=== PATIENT | male | born 1970 | race Caucasian/White ===

== ENCOUNTER 2020-05-17 06:54 | Outpatient (REF) | payer BC, SELFPAY ==
[2020-05-17 11:49] LABS: Hematocrit 47.4 % (42-52); Hemoglobin 15.6 g/dl (14.0-18.0); Mean Corpuscular HGB Conc 32.9 g/dl (31.0-36.0); Mean Corpuscular Hemoglobin 28.7 pg (27.0-33.0); Mean Corpuscular Volume 87.3 fL (80-98); Mean Platelet Volume 10.4 fL (9.4-12.4); Platelet Count 212 X10*3/uL (160-400); Red Blood Count 5.43 X10*6/uL (4.60-5.80)
[2020-05-17 12:12] LABS: Alanine Aminotransferase 18 U/L (0-40); Albumin Level 4.3 g/dL (3.5-5.0); Alkaline Phosphatase 80 U/L (39-117); Anion Gap 12 (12-20); Aspartate Amino Transferase 17 U/L (5-37); Bilirubin Total 0.6 mg/dL (0.0-1.0); Blood Urea Nitrogen 17 mg/dL (9-16); Calcium 8.7 mg/dL (8.4-10.2); Carbon Dioxide 28 mmol/L (22-29); Chloride 105 mmol/L (96-108); Cholesterol 220 mg/dL; Estimated Glomerular Filt Rate > 60; Glucose Fasting 113 mg/dL (60-99); HDL Cholesterol 41 mg/dL; LDL Cholesterol Calculated 142 mg/dl; Potassium 3.9 mmol/l (3.3-5.1); Sodium 141 mmol/L (135-145); Total Protein 6.9 g/dL (6.5-8.0); Triglycerides 185 mg/dL
[2020-05-17 12:37] LABS: Prostate Specific Antigen Scr 0.85 ng/mL (<0.05-4.0)
== END 2020-05-17 06:55 | disposition home or self-care (01) ==
LOC: HO.HMGCLDS 06:54
PROVIDERS: PCP Internal Medicine; Visit Provider Internal Medicine
DX: Z00.00 Encounter for general adult medical examination without abnormal findings (principal)
CPT/HCPCS: 36415; 80053; 80061; 84153; 85027

== ENCOUNTER 2020-05-24 | Outpatient (REF) | payer BC, SELFPAY ==
[2020-05-25 12:21] LABS: Glucose Urine UA NEG (NEG); Leukocyte Esterase Urine NEG (NEG); Nitrite Urine NEG (NEG); PH 5.5 (5.0-8.0); Specific Gravity - Urine >= 1.030 (1.005-1.025); Urine Blood NEG (NEG); Urine Ketones NEG (NEG); Urine Protein NEG (NEG-TRACE)
[2020-05-25 12:28] LABS: Appearance Urine CLEAR; Color Urine YELLOW
== END 2020-05-24 00:01 | disposition home or self-care (01) ==
LOC: HO.LNP
PROVIDERS: Visit Provider Internal Medicine
DX: Z00.00 Encounter for general adult medical examination without abnormal findings (principal)
CPT/HCPCS: 81003

== ENCOUNTER 2020-06-22 08:29 | Outpatient (REF) | payer BC, SELFPAY | END 2020-06-22 08:30 | disposition home or self-care (01) | LOC: HO.HMGCLDS 08:29 | PROVIDERS: PCP Internal Medicine; Visit Provider Internal Medicine | DX: Z20.828 Contact with and (suspected) exposure to other viral communicable diseases (principal) | CPT/HCPCS: C9803; U0003 ==

== ENCOUNTER 2020-09-02 | Outpatient (REF) | payer BC, SELFPAY ==
[2020-09-06 09:54] LABS: FIT Int Ctl YES; FIT1 NEGATIVE (NEGATIVE); FIT2 NEGATIVE (NEGATIVE)
== END 2020-09-02 00:01 | disposition home or self-care (01) ==
LOC: HO.LNP
PROVIDERS: Visit Provider Internal Medicine
DX: Z12.11 Encounter for screening for malignant neoplasm of colon (principal); Z12.12 Encounter for screening for malignant neoplasm of rectum
CPT/HCPCS: 82274

== ENCOUNTER 2021-06-04 07:22 | Outpatient (REF) | payer OTHER, SELFPAY ==
[2021-06-04 11:25] LABS: Estimated Average Glucose 108 mg/dL; Hemoglobin A1C 152.1448 umol/L; Hemoglobin A1c % 5.4 %
[2021-06-04 11:34] LABS: Microalbum/Creatinine Ratio Ur 2.7 ug/mg cr
[2021-06-04 11:36] LABS: Alanine Aminotransferase 25 U/L (0-40); Albumin Level 4.3 g/dL (3.5-5.0); Alkaline Phosphatase 85 U/L (39-117); Anion Gap 13 (12-20); Aspartate Amino Transferase 19 U/L (5-37); Bilirubin Total 0.5 mg/dL (0.0-1.0); Blood Urea Nitrogen 17 mg/dL (9-16); Calcium 9.5 mg/dL (8.4-10.2); Carbon Dioxide 26 mmol/L (22-29); Chloride 105 mmol/L (96-108); Cholesterol 255 mg/dL; Estimated Glomerular Filt Rate 58; Glucose Fasting 107 mg/dL (60-99); HDL Cholesterol 40 mg/dL; LDL Cholesterol Calculated 174 mg/dl; Potassium 4.3 mmol/L (3.3-5.1); Sodium 140 mmol/L (135-145); Total Protein 7.3 g/dL (6.5-8.0); Triglycerides 206 mg/dL
[2021-06-04 11:56] LABS: Prostate Specific Antigen Scr 1.38 ng/mL (<0.05-4.0)
== END 2021-06-04 07:23 | disposition home or self-care (01) ==
LOC: HO.HMGCLDS 07:22
PROVIDERS: PCP Internal Medicine; Visit Provider Internal Medicine
DX: Z00.00 Encounter for general adult medical examination without abnormal findings (principal); Z12.5 Encounter for screening for malignant neoplasm of prostate; E78.5 Hyperlipidemia, unspecified; R73.9 Hyperglycemia, unspecified
CPT/HCPCS: 36415; 80053; 80061; 82043; 83036; 84153

== ENCOUNTER 2022-06-24 06:43 | Outpatient (REF) | payer OTHER, SELFPAY ==
[2022-06-24 10:58] LABS: MANUAL DIFF FLAG NO
[2022-06-24 11:05] LABS: Basophils Percent Auto 0.4 % (0-2); Eosinophils Absolute Auto 0.1 X10*3/uL (0.0-0.4); Eosinophils Percent Auto 1.6 % (0-4); Hematocrit 47.2 % (42.0-52.0); Hemoglobin 15.9 g/dl (14.0-18.0); Imm Gran Abs Auto 0.01 X10*3/uL (0.00-0.03); Imm Gran Pct Auto 0.1 % (0.0-0.4); Lymphocytes Absolute Auto 1.9 X10*3/uL (1.2-4.9); Lymphocytes Percent Auto 28.9 % (20-40); Mean Corpuscular HGB Conc 33.7 g/dl (31.0-36.0); Mean Corpuscular Hemoglobin 29.1 pg (27.0-33.0); Mean Corpuscular Volume 86.3 fL (80.0-98.0); Mean Platelet Volume 10.6 fL (9.4-12.4); Monocytes Absolute Auto 0.7 X10*3/uL (0.1-1.2); Monocytes Percent Auto 9.9 % (2-11); Neutrophils Absolute Auto 3.9 x10*3/uL (2.0-8.3); Neutrophils Percent Auto 59.1 % (45-73); Platelet Count 253 X10*3/uL (160-400); Red Blood Count 5.47 X10*6/uL (4.60-5.80); Red Cell Distribution Width 12.3 % (11.0-16.0); White Blood Count 6.7 X10*3/uL (4.8-10.8)
[2022-06-24 11:19] LABS: Estimated Average Glucose 105 mg/dL; Hemoglobin A1c % 5.3 %
[2022-06-24 11:41] LABS: Alanine Aminotransferase 19 U/L (0-40); Albumin Level 4.4 g/dL (3.5-5.0); Alkaline Phosphatase 88 U/L (39-117); Anion Gap 12 (12-20); Aspartate Amino Transferase 21 U/L (5-37); Bilirubin Total 0.9 mg/dL (0.0-1.0); Blood Urea Nitrogen 16 mg/dL (9-16); Calcium 9.2 mg/dL (8.4-10.2); Carbon Dioxide 23 mmol/L (22-29); Chloride 109 mmol/L (96-108); Cholesterol 232 mg/dL; Estimated Glomerular Filt Rate > 60; Glucose Fasting 118 mg/dL (60-99); HDL Cholesterol 37 mg/dL; LDL Cholesterol Calculated 168 mg/dl; PSA,Total (Free>4and<10) 1.16 ng/mL (0.00-4.00); Potassium 4.4 mmol/L (3.3-5.1); Sodium 140 mmol/L (135-145); Total Protein 7.2 g/dL (6.5-8.0); Triglycerides 135 mg/dL
== END 2022-06-24 06:44 | disposition home or self-care (01) ==
LOC: HO.HMGCLDS 06:43
PROVIDERS: PCP Internal Medicine; Visit Provider Internal Medicine
DX: Z00.00 Encounter for general adult medical examination without abnormal findings (principal); E78.5 Hyperlipidemia, unspecified; R73.9 Hyperglycemia, unspecified; Z12.5 Encounter for screening for malignant neoplasm of prostate
CPT/HCPCS: 36415; 80053; 80061; 83036; 84153; 85025

== ENCOUNTER 2023-05-24 11:27 | Outpatient (REF) | payer OTHER, SELFPAY | END 2023-05-24 11:28 | disposition home or self-care (01) | LOC: HO.LNP 11:27 | PROVIDERS: Visit Provider Internal Medicine | DX: Z13.89 Encounter for screening for other disorder (principal) ==

== ENCOUNTER 2023-05-29 11:26 | Outpatient (REF) | payer OTHER, SELFPAY ==
[2023-05-29 11:50] LABS: FIT Int Ctl YES; FIT1 NEGATIVE (NEGATIVE); FIT2 NEGATIVE (NEGATIVE)
== END 2023-05-29 11:27 | disposition home or self-care (01) ==
LOC: HO.LNP 11:26
PROVIDERS: Visit Provider Internal Medicine
DX: Z12.11 Encounter for screening for malignant neoplasm of colon (principal)
CPT/HCPCS: 82274

== ENCOUNTER 2023-08-25 06:32 | Outpatient (REF) | payer OTHER, SELFPAY ==
[2023-08-25 11:24] LABS: MANUAL DIFF FLAG NO
[2023-08-25 11:31] LABS: Basophils Percent Auto 0.2 % (0-2); Eosinophils Absolute Auto 0.1 X10*3/uL (0.0-0.4); Eosinophils Percent Auto 0.9 % (0-4); Hematocrit 44.9 % (42.0-52.0); Hemoglobin 15.5 g/dl (14.0-18.0); Imm Gran Abs Auto 0.04 X10*3/uL (0.00-0.03); Imm Gran Pct Auto 0.5 % (0.0-0.4); Lymphocytes Absolute Auto 1.6 X10*3/uL (1.2-4.9); Mean Corpuscular HGB Conc 34.5 g/dl (31.0-36.0); Mean Corpuscular Volume 83.9 fL (80.0-98.0); Monocytes Absolute Auto 0.6 X10*3/uL (0.1-1.2); Monocytes Percent Auto 7.3 % (2-11); Neutrophils Absolute Auto 5.7 x10*3/uL (2.0-8.3); Neutrophils Percent Auto 71.1 % (45-73); Platelet Count 235 X10*3/uL (160-400); Red Blood Count 5.35 X10*6/uL (4.60-5.80); Red Cell Distribution Width 12.4 % (11.0-16.0); White Blood Count 8.1 X10*3/uL (4.8-10.8)
[2023-08-25 11:51] LABS: Estimated Average Glucose 105 mg/dL; Hemoglobin A1c % 5.3 % (<6.0)
[2023-08-25 12:03] LABS: Alanine Aminotransferase 17 U/L (0-40); Albumin Level 4.1 g/dL (3.5-5.0); Alkaline Phosphatase 88 U/L (39-117); Anion Gap 9 (12-20); Aspartate Amino Transferase 18 U/L (5-37); Bilirubin Total 0.8 mg/dL (0.0-1.0); Blood Urea Nitrogen 17 mg/dL (9-16); Calcium 9.1 mg/dL (8.4-10.2); Carbon Dioxide 24 mmol/L (22-29); Chloride 108 mmol/L (96-108); Cholesterol 236 mg/dL (<200); Estimated Glomerular Filt Rate > 60; Glucose Fasting 117 mg/dL (60-99); HDL Cholesterol 39 mg/dL (>40); LDL Cholesterol Calculated 172 mg/dL (<100); Potassium 3.9 mmol/L (3.3-5.1); Sodium 137 mmol/L (135-145); Total Protein 7.1 g/dL (6.5-8.0); Triglycerides 126 mg/dL (<150)
[2023-08-25 12:20] LABS: PSA,Total (Free>4and<10) 1.41 ng/mL (0.00-4.00)
== END 2023-08-25 06:33 | disposition home or self-care (01) ==
LOC: HO.HMGCLDS 06:32
PROVIDERS: PCP Internal Medicine; Visit Provider Internal Medicine
DX: Z00.00 Encounter for general adult medical examination without abnormal findings (principal); Z12.5 Encounter for screening for malignant neoplasm of prostate; E78.5 Hyperlipidemia, unspecified; R73.9 Hyperglycemia, unspecified
CPT/HCPCS: 36415; 80053; 80061; 83036; 84153; 85025

== ENCOUNTER 2023-08-28 09:26 | Outpatient (AMB) | payer OTHER, SELFPAY ==
--- NOTE | 2023-08-28 09:27 | A.OFFPC_ITS ---
Vital Signs 08/28/23 09:28 Height 6 ft Weight 213 lb BMI 28.9 BP 125/80 Blood Pressure Location Lt brachial Position Sitting Pulse 81 Pulse Source Pulse Oximeter Pulse Oximetry (%) 98 Oxygen Delivery Method Room Air Intake Visit Reasons: PE Intake Note: Pt is here today for PE. Allergies No Known Allergies [No Known Allergies*] Allergy (Verified 08/28/23 09:33) Medication List - Last Reconciled 08/28/23 by Nicol Garcia MD aspirin 81 mg PO DAILY omega-3 fatty acids (Fish Oil Concentrate) 1,000 mg PO DAILY rosuvastatin (Crestor) 10 mg PO DAILY Tobacco use date assessed: 08/28/23 Dental Screening Dental Screen Date: 08/28/23 Did you have a dental visit in the last 12 months?: No Did you have a dental problem in the last 6 months where you did not have access to dental care?: No Was dental information given to patient?: Patient declined HPI PE HPI Details Pt presents for PE. He has an episode of sensation of fast heart beat lasting up to a minute usually when sitting watching TV and resting, once or twice a month. Patient denies chest pain exercise induced palpitations shortness for breath. He ran out of Crestor 2 months ago. [facility] Medical History (Updated 08/28/23 @ 10:18 by Nicol Garcia MD) Colonoscopy refused Hyperglycemia Hyperlipidemia History of kidney stones History of jaundice as a child Annual physical exam Surgical History History of cardiac cath History of surgery Family History Father CAD (coronary artery disease), Onset Age: 50 Hx of CABG Heart attack Mother Heart attack Social History Household Members Other:: , 3 sons 21, 17, 7, works at metal factory, Housing: House Patient Tobacco Use Status: Current someday Tobacco user Tobacco use type: Cigarette Cigarettes Per Day: 5 e-Cigarette/Vaping Use: Never Used Current occupational status: employed Cognitive needs: No Hearing needs: No Vision needs: No Questionnaire PHQ-9 Over the last 2 weeks, how often have you been bothered by any of the following problems? 1. Little interest or pleasure in doing things: not at all 2. Feeling down, depressed, or hopeless: not at all 3. Trouble falling or staying asleep, or sleeping too much: not at all 4. Feeling tired or having little energy: not at all 5. Poor appetite or overeating: not at all 6. Feeling bad about yourself - or that you are a failure or have let yourself or your family down: not at all 7. Trouble concentrating on things, such as reading the newspaper or watching television: not at all 8. Moving or speaking so slowly that other people could have noticed. Or the opposite - being so fidgety or restless that you have been moving around a lot more than usual: not at all 9. Thoughts that you would be better off or of hurting yourself in some way: not at all Total score: 0 Depression Screening Interpretation: Negative Depression Screening Done: Yes Source: Developed by Drs. Hugo Church, Nannette Olea, Nando Gutierres and colleagues, with an educational ny from [employer]. Thrive Questionnaire Date Thrive assessed: 08/28/23 I am a: Patient What is your living situation today?: I have a steady place to live Within the past 12 months, did the food you bought not last and you didn't have the money to get more?: Never true Within the past 12 months, did you worry whether your food would run out before you got money to buy more?: Never true Do you have trouble paying for medicines?: No Do you have trouble getting transportation to medical appointments?: No Do you have trouble paying your heating and electricity bill?: No Do you have trouble taking care of your child, family member or friend?: No Do you have trouble with day-to-day activities such as bathing, preparing meals, shopping, managing finances, etc.?: No Are you currently unemployed and looking for a job?: No Are you interested in more education?: No Please select the resources that you would like help with: None Currently or been in a relationship where the following occur: no concerns reported THRIVE Score: 0 AUDIT C Alcohol Use Questionnaire (AUDIT-C) 1. How often do you have a drink containing alcohol?: Monthly or less 2. How many drinks containing alcohol do you have on a typical day when you are drinking?: 1 or 2 3. How often do you have six or more drinks on one occasion?: Never Total Score: 1 MAXIME-7 AMB Questionnaire MAXIME-7 Date MAXIME - 7 assessed: 08/28/23 Feeling nervous, anxious, or on edge: 0 = Not at all Not being able to stop or control worryin = Not at all Worrying too much about different things: 0 = Not at all Trouble relaxin = Not at all Being so restless that it is hard to sit still: 0 = Not at all Becoming easily annoyed or irritable: 0 = Not at all Feeling afraid as if something awful might happen: 0 = Not at all Total MAXIME-7 score (0-4 normal; 5-9 mild; 10-14 moderate; 15-21 severe): 0 Source: Developed by Drs. Hugo Church, Nannette Olea, Nando Gutierres and colleagues, with an educational ny from [employer]. Review of Systems Const All systems reviewed & are unremarkable except as noted in HPI and below Reports no additional complaints Eyes Reports no additional complaints ENT Reports no additional complaints Card Reports no additional complaints Resp Reports no additional complaints GI Reports no additional complaints Reports no additional complaints Physical exam (Primary Care) Vital Signs: Last Vital Signs Pulse 81 08/28/23 09:28 BP 134/80 08/28/23 09:28 Pulse Ox 98 08/28/23 09:28 Oxygen Delivery Method Room Air 08/28/23 09:28 BMI result Body Mass Index 28.9 Tobacco/Smoking Status: Tobacco use Status Tobacco use date assessed 08/28/23 08/28/23 09:35 Patient Tobacco Use Status Current someday Tobacco 08/28/23 09:35 Tobacco use type Cigarette 08/28/23 09:35 e-Cigarette/Vaping Use Never Used 08/28/23 09:35 PHQ-9: PHQ-9 Score PHQ-9: Total score 0 08/28/23 09:49 Depression Screening Interpretation: Negative Thrive Assessment: Date of Thrive Assessment Date Thrive assessed 08/28/23 08/28/23 09:38 Currently or been in a relationship where the following occur: no concerns reported Const General: no acute distress HENMT Head: Yes normal to inspection Face and sinus: Yes normal facial exam Mouth: Normal oral and palatal mucosa present Eyes General: appearance normal, both eyes and all related structures Neck Neck: Yes no lymphadenopathy and Yes supple Resp Effort & Inspection: normal respiratory effort Auscultation: clear to auscultation bilaterally Cardio Rhythm: regular rhythm Heart sounds: S1 normal heart sound present and S2 normal heart sound present GI Inspection: Yes normal to inspection Palpation (GI): Soft to palpation Percussion: Yes normal to percussion Auscultation: normal bowel sounds Assessment and Plan Assessment & Plan (1) Annual physical exam: Code(s): Z00.00 - Encounter for general adult medical examination without abnormal findings Plan: Well-balanced diet regular physical activity discussed with the patient. Tobacco quitting was recommended. Patient was advised to monitor episodes of palpitations, their frequency duration and relationship to physical activity or stress (2) Hyperlipidemia: Code(s): E78.5 - Hyperlipidemia, unspecified Plan: Patient will restart Crestor and will have fasting lipid profile in 2 months (3) Colonoscopy refused: Comment: 05/2021, 07/31 , Cologuard negative 2021, FIT negative 05/31 Code(s): Z53.20 - Procedure and treatment not carried out because of patient's decision for unspecified reasons Orders: Orders Lipid Panel 2 Months E78.5 - Hyperlipidemia, unspecified, Z00.00 - Encounter for general adult medical examination without abnormal findings Comprehensive Met. Panel 2 Months E78.5 - Hyperlipidemia, unspecified, Z00.00 - Encounter for general adult medical examination without abnormal findings Medications: Refilled rosuvastatin (Crestor) 10 mg PO DAILY 90 tabs 3RF Coding Level of Care Code Est Pt Prev Care 40-64y(02740) Diagnoses Annual physical exam Z00.00 Hyperlipidemia E78.5 Colonoscopy refused Z53.20
[2023-08-28 09:28] VITALS: BP 125/80; PULSE 81; O2SAT 98; BMI 28.9
== END 2023-08-28 10:25 | disposition home or self-care (01) ==
PROVIDERS: PCP Internal Medicine; Visit Provider Internal Medicine
DX: Z00.00 Encounter for general adult medical examination without abnormal findings (principal); E78.5 Hyperlipidemia, unspecified; Z53.20 Procedure and treatment not carried out because of patient's decision for unspecified reasons
CPT/HCPCS: 99396

== ENCOUNTER 2023-10-30 06:01 | Outpatient (REF) | payer OTHER, SELFPAY ==
[2023-10-30 12:11] LABS: Alanine Aminotransferase 23 U/L (0-40); Albumin Level 4.3 g/dL (3.5-5.0); Alkaline Phosphatase 96 U/L (39-117); Anion Gap 11 (12-20); Aspartate Amino Transferase 23 U/L (5-37); Bilirubin Total 0.8 mg/dL (0.0-1.0); Blood Urea Nitrogen 14 mg/dL (9-16); Calcium 9.3 mg/dL (8.4-10.2); Carbon Dioxide 27 mmol/L (22-29); Chloride 107 mmol/L (96-108); Cholesterol 205 mg/dL (<200); Estimated Glomerular Filt Rate > 60; Glucose Random 116 mg/dL (60-115); HDL Cholesterol 38 mg/dL (>40); LDL Cholesterol Calculated 134 mg/dL (<100); Potassium 3.7 mmol/L (3.3-5.1); Sodium 141 mmol/L (135-145); Total Protein 7.3 g/dL (6.5-8.0); Triglycerides 169 mg/dL (<150)
== END 2023-10-30 06:02 | disposition home or self-care (01) ==
LOC: HO.HMGCLDS 06:01
PROVIDERS: PCP Internal Medicine; Visit Provider Internal Medicine
DX: Z00.00 Encounter for general adult medical examination without abnormal findings (principal); E78.5 Hyperlipidemia, unspecified
CPT/HCPCS: 36415; 80053; 80061

== ENCOUNTER 2023-11-01 13:51 | Outpatient (AMB) | payer OTHER, SELFPAY ==
[2023-11-01 13:57] VITALS: BP 124/76; PULSE 76; O2SAT 97; BMI 28.9
--- NOTE | 2023-11-01 13:57 | A.OFFPC_ITS ---
Vital Signs 11/01/23 13:57 Height 6 ft Weight 213 lb BMI 28.9 BP 124/76 Blood Pressure Location Rt brachial Pulse 76 Pulse Source Pulse Oximeter Pulse Oximetry (%) 97 Oxygen Delivery Method Room Air Intake Visit Reasons: 2 months follow up on labs Allergies No Known Allergies [No Known Allergies*] Allergy (Verified 11/01/23 13:57) Medication List - Last Reconciled 11/01/23 by Nicol Garcia MD aspirin 81 mg PO DAILY omega-3 fatty acids (Fish Oil Concentrate) 1,000 mg PO DAILY rosuvastatin (Crestor) 10 mg PO DAILY Tobacco use date assessed: 11/01/23 Dental Screening Dental Screen Date: 11/01/23 Did you have a dental visit in the last 12 months?: Yes Did you have a dental problem in the last 6 months where you did not have access to dental care?: No Was dental information given to patient?: Patient has dentist HPI 2 months follow up on labs HPI Details Patient presents for hyperlipidemia. [facility] Medical History (Updated 08/28/23 @ 10:18 by Nicol Garcia MD) Colonoscopy refused Hyperglycemia Hyperlipidemia History of kidney stones History of jaundice as a child Annual physical exam Surgical History History of cardiac cath History of surgery Family History Father CAD (coronary artery disease), Onset Age: 50 Hx of CABG Heart attack Mother Heart attack Social History Household Members Other:: , 3 sons 21, 17, 7, works at [employer], Housing: House Patient Tobacco Use Status: Current someday Tobacco user Tobacco use type: Cigarette Cigarettes Per Day: 5 e-Cigarette/Vaping Use: Never Used service: No Current occupational status: employed Cognitive needs: No Hearing needs: No Vision needs: No Questionnaire Thrive Questionnaire Date Thrive assessed: 08/28/23 MAXIME-7 AMB Questionnaire MAXIME-7 Date MAXIME - 7 assessed: 08/28/23 Source: Developed by Drs. Hugo Church, Nannette Olea, Nando Gutierres and colleagues, with an educational ny from [employer]. Review of Systems Const All systems reviewed & are unremarkable except as noted in HPI and below Eyes Reports no additional complaints ENT Reports no additional complaints Card Reports no additional complaints Resp Reports no additional complaints GI Reports no additional complaints Reports no additional complaints Physical exam (Primary Care) Vital Signs: Last Vital Signs Pulse 76 11/01/23 13:57 BP 124/76 11/01/23 13:57 Pulse Ox 97 11/01/23 13:57 Oxygen Delivery Method Room Air 11/01/23 13:57 BMI result Body Mass Index 28.9 Tobacco/Smoking Status: Tobacco use Status Tobacco use date assessed 11/01/23 11/01/23 13:58 Patient Tobacco Use Status Current someday Tobacco 11/01/23 13:58 Tobacco use type Cigarette 11/01/23 13:58 e-Cigarette/Vaping Use Never Used 11/01/23 13:58 Thrive Assessment: Date of Thrive Assessment Date Thrive assessed 08/28/23 11/01/23 13:58 Const General: no acute distress HENMT Head: Yes normal to inspection Resp Effort & Inspection: normal respiratory effort Auscultation: clear to auscultation bilaterally Cardio Rhythm: regular rhythm Heart sounds: S1 normal heart sound present and S2 normal heart sound present GI Inspection: Yes normal to inspection Palpation (GI): Soft to palpation Assessment and Plan Assessment & Plan (1) Hyperlipidemia: Code(s): E78.5 - Hyperlipidemia, unspecified Plan: Medication compliance discussed with the patient he will continue Crestor have lipid profile checked in 6 months and before physical in August, continue low- cholesterol diet (2) Hyperglycemia: Code(s): R73.9 - Hyperglycemia, unspecified Plan: ADA diet regular exercise discussed with the patient will monitor A1c every 6 months Orders: Orders Lipid Panel 10 Months E78.5 - Hyperlipidemia, unspecified, R73.9 - Hyperglycemia, unspecified, Z00.00 - Encounter for general adult medical examination without abnormal findings PSA,Total (Free>4and<10) 10 Months E78.5 - Hyperlipidemia, unspecified, R73.9 - Hyperglycemia, unspecified, Z00.00 - Encounter for general adult medical examination without abnormal findings Lipid Panel 6 Months E78.5 - Hyperlipidemia, unspecified, R73.9 - Hyperglycemia, unspecified Comprehensive [place]. Panel Fast 6 Months E78.5 - Hyperlipidemia, unspecified, R73.9 - Hyperglycemia, unspecified Hemoglobin A1c 6 Months E78.5 - Hyperlipidemia, unspecified, R73.9 - Hyperglycemia, unspecified Comprehensive [place]. Panel Fast 10 Months E78.5 - Hyperlipidemia, unspecified, R73.9 - Hyperglycemia, unspecified, Z00.00 - Encounter for general adult medical examination without abnormal findings Complete Blood Count Auto Diff 10 Months E78.5 - Hyperlipidemia, unspecified, R73.9 - Hyperglycemia, unspecified, Z00.00 - Encounter for general adult medical examination without abnormal findings Hemoglobin A1c 10 Months E78.5 - Hyperlipidemia, unspecified, R73.9 - Hyperglycemia, unspecified, Z00.00 - Encounter for general adult medical examination without abnormal findings UA w Microscopic 10 Months E78.5 - Hyperlipidemia, unspecified, R73.9 - Hyperglycemia, unspecified, Z00.00 - Encounter for general adult medical examination without abnormal findings Coding Level of Care Code Est Pt Level 3 (10218) Diagnoses Hyperlipidemia E78.5 Hyperglycemia R73.9
== END 2023-11-01 14:41 | disposition home or self-care (01) ==
PROVIDERS: PCP Internal Medicine; Visit Provider Internal Medicine
DX: E78.5 Hyperlipidemia, unspecified (principal); R73.9 Hyperglycemia, unspecified
CPT/HCPCS: 99213

== ENCOUNTER 2024-03-25 11:57 | Outpatient (AMB) | payer OTHER, SELFPAY ==
[2024-03-25 12:11] VITALS: BP 126/78; PULSE 78; O2SAT 98; BMI 28.5
--- NOTE | 2024-03-25 12:11 | MHC.PC.OV ---
Vital Signs 03/25/24 12:11 Height 6 ft Weight 210 lb BMI 28.5 BP 126/78 Blood Pressure Location Rt brachial Position Sitting Pulse 78 Pulse Source Pulse Oximeter Pulse Oximetry (%) 98 Oxygen Delivery Method Room Air Intake Visit Reasons: Rash armpits Intake Note: Pt c/o rash all over body. Pt states that it started on his chest and now its under his armpits eye lids.Pt states that the rash is very itchy started on Sunday. Allergies No Known Allergies [No Known Allergies*] Allergy (Verified 03/25/24 12:20) Medication List - Last Reconciled 03/25/24 by Nicol Garcia MD aspirin 81 mg PO DAILY omega-3 fatty acids (Fish Oil Concentrate) 1,000 mg PO DAILY prednisone 50 mg PO DAILY rosuvastatin (Crestor) 10 mg PO DAILY Tobacco use date assessed: 03/25/24 Dental Screening Dental Screen Date: 03/25/24 HPI Rash armpits HPI Details Pt c/o itchy rash started after using deodorant 1 week ago. The rash started in the armpits and spread to his torso and back. Patient has been using [id number] hydrocortisone cream without relief. [facility] Medical History Colonoscopy refused Hyperglycemia Hyperlipidemia History of kidney stones History of jaundice as a child Annual physical exam Surgical History History of cardiac cath History of surgery Family History Father CAD (coronary artery disease), Onset Age: 50 Hx of CABG Heart attack Mother Heart attack Social History Household Members Other:: , 3 sons 21, 17, 7, works at metal factory, Housing: House Patient Tobacco Use Status: Former Tobacco user Tobacco use type: Cigarette e-Cigarette/Vaping Use: Never Used service: No Current occupational status: employed Cognitive needs: No Hearing needs: No Vision needs: No Questionnaire Thrive Questionnaire Date Thrive assessed: 08/28/23 MAXIME-7 AMB Questionnaire MAXIME-7 Date MAXIME - 7 assessed: 08/28/23 Source: Developed by Nannette Watson B[employer]W. Lef[employer], Nando Gutierres and colleagues, with an educational ny from [employer]. Review of Systems Const All systems reviewed & are unremarkable except as noted in HPI and below Eyes Reports no additional complaints ENT Reports no additional complaints Card Reports no additional complaints Resp Reports no additional complaints GI Reports no additional complaints Physical exam (Primary Care) Vital Signs: Last Vital Signs Pulse 78 03/25/24 12:11 BP 126/78 03/25/24 12:11 Pulse Ox 98 03/25/24 12:11 Oxygen Delivery Method Room Air 03/25/24 12:11 BMI result Body Mass Index 28.5 Tobacco/Smoking Status: Tobacco use Status Tobacco use date assessed 03/25/24 03/25/24 12:23 Patient Tobacco Use Status Former Tobacco user 03/25/24 12:37 Tobacco use type Cigarette 03/25/24 12:11 e-Cigarette/Vaping Use Never Used 03/25/24 12:11 Thrive Assessment: Date of Thrive Assessment Date Thrive assessed 08/28/23 03/25/24 12:11 Const General: no acute distress HENMT Ears: hearing grossly normal bilaterally Neck Neck: Yes supple Resp Effort & Inspection: normal respiratory effort Auscultation: clear to auscultation bilaterally Cardio Rhythm: regular rhythm Heart sounds: S1 normal heart sound present and S2 normal heart sound present Skin Other: Maculopapular rash on the torso and in axillary region bilaterally Assessment and Plan Assessment & Plan (1) Allergic reaction: Code(s): T78.40XA - Allergy, unspecified, initial encounter Plan: Prednisone 50 mg daily for 5 days is prescribed and supportive care discussed with the patient Medications: New prednisone 50 mg PO DAILY 5 tabs 0RF Coding Level of Care Code Est Pt Level 3 (33830) Diagnoses Allergic reaction T78.40XA
== END 2024-03-25 13:21 | disposition home or self-care (01) ==
PROVIDERS: PCP Internal Medicine; Visit Provider Internal Medicine
DX: T78.40XA Allergy, unspecified, initial encounter (principal)

== ENCOUNTER → 2024-03-25 11:57 | Outpatient (BNVA) | payer OTHER, SELFPAY | PROVIDERS: PCP Internal Medicine; Visit Provider Internal Medicine | DX: T78.40XA Allergy, unspecified, initial encounter (principal); X58.XXXA Exposure to other specified factors, initial encounter ==

== ENCOUNTER 2024-04-09 13:21 | Outpatient (AMB) | payer OTHER, SELFPAY ==
[2024-04-09 13:22] VITALS: BP 128/72; PULSE 73; O2SAT 97; BMI 28.1
--- NOTE | 2024-04-09 13:22 | MHC.PC.OV ---
Vital Signs 04/09/24 13:22 Height 6 ft Weight 207 lb BMI 28.1 BP 128/72 Blood Pressure Location Rt brachial Position Sitting Pulse 73 Pulse Source Pulse Oximeter Pulse Oximetry (%) 97 Oxygen Delivery Method Room Air Intake Visit Reasons: Follow up on rash Intake Note: Pt is here today for a follow up visit on rash. Pt states that he is loosing weight and his rash is back and its very itchy,. Pt states that he also has pain in his muscles. Allergies No Known Allergies [No Known Allergies*] Allergy (Verified 03/25/24 12:20) Medication List - Last Reconciled 04/09/24 by Nicol Garcia MD aspirin 81 mg PO DAILY omega-3 fatty acids (Fish Oil Concentrate) 1,000 mg PO DAILY rosuvastatin (Crestor) 10 mg PO DAILY Tobacco use date assessed: 04/09/24 Dental Screening Dental Screen Date: 03/25/24 HPI Follow up on rash HPI Details Patient presents for the follow-up of pruritic rash improved while on prednisone but now is recurrent. The rash is worse in axillary region, upper chest and arms. Patient used any new laundry detergent a few weeks ago and has been still wearing clothes washed in that detergent. He denies fever chills shortness or breath abdominal pain change in bowel habits [facility] Medical History Colonoscopy refused Hyperglycemia Hyperlipidemia History of kidney stones History of jaundice as a child Annual physical exam Surgical History History of cardiac cath History of surgery Family History Father CAD (coronary artery disease), Onset Age: 50 Hx of CABG Heart attack Mother Heart attack Social History Household Members Other:: , 3 sons 21, 17, 7, works at [employer], Housing: House Patient Tobacco Use Status: Former Tobacco user Tobacco use type: Cigarette e-Cigarette/Vaping Use: Never Used service: No Current occupational status: employed Cognitive needs: No Hearing needs: No Vision needs: No Questionnaire Thrive Questionnaire Date Thrive assessed: 08/28/23 MAXIME-7 AMB Questionnaire MAXIME-7 Date MAXIME - 7 assessed: 08/28/23 Source: Developed by Drs. Hugo Church, Nannette Olea, Nando Gutierres and colleagues, with an educational ny from [employer]. Review of Systems Const All systems reviewed & are unremarkable except as noted in HPI and below Eyes Reports no additional complaints ENT Reports no additional complaints Card Reports no additional complaints Resp Reports no additional complaints GI Reports no additional complaints Reports no additional complaints Physical exam (Primary Care) Vital Signs: Last Vital Signs Pulse 73 04/09/24 13:22 BP 128/72 04/09/24 13:22 Pulse Ox 97 04/09/24 13:22 Oxygen Delivery Method Room Air 04/09/24 13:22 BMI result Body Mass Index 28.1 Tobacco/Smoking Status: Tobacco use Status Tobacco use date assessed 04/09/24 04/09/24 13:31 Patient Tobacco Use Status Former Tobacco user 04/09/24 13:27 Tobacco use type Cigarette 04/09/24 13:27 e-Cigarette/Vaping Use Never Used 04/09/24 13:27 Thrive Assessment: Date of Thrive Assessment Date Thrive assessed 08/28/23 04/09/24 13:27 Const General: no acute distress Neck Neck: Yes supple Resp Effort & Inspection: normal respiratory effort Auscultation: clear to auscultation bilaterally Cardio Rhythm: regular rhythm Heart sounds: S1 normal heart sound present and S2 normal heart sound present Skin Other: Maculopapular erythematous rash on torso upper extremities neck and face Coding Level of Care Code Est Pt Level 3 (13512) Diagnoses Allergic reaction T78.40XA Assessment & Plan Assessment & Plan (1) Allergic reaction: Code(s): T78.40XA - Allergy, unspecified, initial encounter Category: Medical Plan: Patient was advised to rewash clothes, linens and towels in mild hypoallergenic laundry detergent, stop using fabric softener. Prednisone taper and Zyrtec started. Basic blood work and A1c will be obtained Orders: Orders Comprehensive Met. Panel Today T78.40XA - Allergy, unspecified, initial encounter Complete Blood Count Auto Diff Today T78.40XA - Allergy, unspecified, initial encounter Hemoglobin A1c Today T78.40XA - Allergy, unspecified, initial encounter Medications: New prednisone Four tablets p.o. q.d. for 3 days then 3 tablets p.o. q.d. for 3 days then 2 tablets p.o. q.d. for 3 days then 1 tablet p.o. q.d. for 3 days 30 tabs 0RF Changed From rosuvastatin (Crestor) 10 mg PO DAILY 90 tabs 3RF To rosuvastatin 10 mg PO DAILY 90 tabs 3RF
== END 2024-04-09 14:02 | disposition home or self-care (01) ==
PROVIDERS: PCP Internal Medicine; Visit Provider Internal Medicine
DX: T78.40XA Allergy, unspecified, initial encounter (principal)

== ENCOUNTER → 2024-04-09 13:21 | Outpatient (BNVA) | payer OTHER, SELFPAY | PROVIDERS: PCP Internal Medicine; Visit Provider Internal Medicine ==

== ENCOUNTER 2024-04-09 13:57 | Outpatient (REF) | payer OTHER, SELFPAY ==
[2024-04-09 16:02] LABS: MANUAL DIFF FLAG NO
[2024-04-09 16:28] LABS: Basophils Percent Auto 0.4 % (0-2); Eosinophils Absolute Auto 0.1 X10*3/uL (0.0-0.4); Hemoglobin 14.3 g/dl (14.0-18.0); Imm Gran Abs Auto 0.03 X10*3/uL (0.00-0.03); Imm Gran Pct Auto 0.4 % (0.0-0.4); Lymphocytes Absolute Auto 1.3 X10*3/uL (1.2-4.9); Lymphocytes Percent Auto 16.8 % (20-40); Mean Corpuscular Hemoglobin 29.1 pg (27.0-33.0); Mean Corpuscular Volume 85.4 fL (80.0-98.0); Mean Platelet Volume 9.8 fL (9.4-12.4); Monocytes Absolute Auto 0.5 X10*3/uL (0.1-1.2); Monocytes Percent Auto 6.9 % (2-11); Neutrophils Absolute Auto 5.7 x10*3/uL (2.0-8.3); Neutrophils Percent Auto 74.5 % (45-73); Platelet Count 225 X10*3/uL (160-400); Red Blood Count 4.92 X10*6/uL (4.60-5.80); Red Cell Distribution Width 12.3 % (11.0-16.0); White Blood Count 7.6 X10*3/uL (4.8-10.8)
[2024-04-09 16:31] LABS: Alanine Aminotransferase 21 U/L (0-40); Albumin Level 4.3 g/dL (3.5-5.0); Alkaline Phosphatase 82 U/L (39-117); Anion Gap 12 (12-20); Aspartate Amino Transferase 19 U/L (5-37); Bilirubin Total 0.7 mg/dL (0.0-1.0); Blood Urea Nitrogen 13 mg/dL (9-16); Carbon Dioxide 24 mmol/L (22-29); Chloride 108 mmol/L (96-108); Estimated Glomerular Filt Rate > 60; Glucose Random 111 mg/dL (60-115); Potassium 3.6 mmol/L (3.3-5.1); Sodium 140 mmol/L (135-145); Total Protein 7.2 g/dL (6.5-8.0)
[2024-04-09 16:41] LABS: Estimated Average Glucose 108 mg/dL; Hemoglobin A1C 129.8987 umol/L; Hemoglobin A1c % 5.4 % (<6.0); Total Hemoglobin (HGBA1C) 3619.9883 umol/L
== END 2024-04-09 13:58 | disposition home or self-care (01) ==
LOC: HO.HMGCLDS 13:57
PROVIDERS: PCP Internal Medicine; Visit Provider Internal Medicine
DX: T78.40XA Allergy, unspecified, initial encounter (principal); Z13.1 Encounter for screening for diabetes mellitus
CPT/HCPCS: 36415; 80053; 83036; 85025

== ENCOUNTER 2024-12-30 13:47 | Outpatient (AMB) | payer OTHER, SELFPAY ==
--- NOTE | 2024-12-30 13:58 | MHC.PC.OV ---
Vital Signs 12/30/24 14:08 Height 6 ft Weight 200 lb BMI 27.1 BP 122/74 Blood Pressure Location Lt brachial Position Sitting Respiration 18 Pulse 80 Pulse Source Pulse Oximeter Temp 98.4 F Temp Source Oral Pulse Oximetry (%) 97 Oxygen Delivery Method Room Air Intake Visit Reasons: PE Intake Note: Pt is here today for PE. Pt states that he keeps loosing weight and his appetite has decreased. Allergies No Known Allergies (No Known Allergies*) Allergy (Verified 12/30/24 14:09) Medication List - Last Reconciled 12/30/24 by Nicol Garcia MD aspirin 81 mg PO DAILY montelukast 10 mg PO BEDTIME omega-3 fatty acids (Fish Oil Concentrate) 1,000 mg PO DAILY rosuvastatin 10 mg PO DAILY Tobacco use date assessed: 12/30/24 Dental Screening Dental Screen Date: 12/30/24 Did you have a dental visit in the last 12 months?: Yes Did you have a dental problem in the last 6 months where you did not have access to dental care?: No Was dental information given to patient?: Patient has dentist HPI PE HPI Details Patient presents for physical. He complains of decreased appetite and lost 7 lb since April. Patient denies nausea vomiting abdominal pain change in bowel habits fever chills night sweats depression or insomnia. He stopped taking Crestor few months ago after he developed contact dermatitis. [facility] Medical History Colonoscopy refused Hyperglycemia Hyperlipidemia History of kidney stones History of jaundice as a child Annual physical exam Surgical History History of cardiac cath History of surgery Family History Father CAD (coronary artery disease), Onset Age: 50 Hx of CABG Heart attack Mother Heart attack Social History Household Members Other:: , 3 sons 21, 17, 7, works at metal factory, Housing: House Patient Tobacco Use Status: Former Tobacco user Tobacco use type: Cigarette e-Cigarette/Vaping Use: Never Used service: No Current occupational status: employed Cognitive needs: No Hearing needs: No Vision needs: No Questionnaire PHQ-9 Over the last 2 weeks, how often have you been bothered by any of the following problems? 1. Little interest or pleasure in doing things: not at all 2. Feeling down, depressed, or hopeless: not at all 3. Trouble falling or staying asleep, or sleeping too much: not at all 4. Feeling tired or having little energy: not at all 5. Poor appetite or overeating: not at all 6. Feeling bad about yourself - or that you are a failure or have let yourself or your family down: not at all 7. Trouble concentrating on things, such as reading the newspaper or watching television: not at all 8. Moving or speaking so slowly that other people could have noticed. Or the opposite - being so fidgety or restless that you have been moving around a lot more than usual: not at all 9. Thoughts that you would be better off or of hurting yourself in some way: not at all Total score: 0 Depression Screening Interpretation: Negative Depression Screening Done: Yes 12747 - PHQ-9 Billing: Yes Source: Developed by Drs. Hugo Church, Nannette Olea, Nando Gutierres and colleagues, with an educational ny from [employer]. Thrive Questionnaire Date Thrive assessed: 12/30/24 I am a: Patient What is your living situation today?: I have a steady place to live Within the past 12 months, did the food you bought not last and you didn't have the money to get more?: Never true Within the past 12 months, did you worry whether your food would run out before you got money to buy more?: Never true Do you have trouble paying for medicines?: No Do you have trouble getting transportation to medical appointments?: No Do you have trouble paying your heating and electricity bill?: No Do you have trouble taking care of your child, family member or friend?: No Do you have trouble with day-to-day activities such as bathing, preparing meals, shopping, managing finances, etc.?: No Are you currently unemployed and looking for a job?: No Are you interested in more education?: No THRIVE Score: 0 AUDIT C Alcohol Use Questionnaire (AUDIT-C) 1. How often do you have a drink containing alcohol?: Monthly or less 2. How many drinks containing alcohol do you have on a typical day when you are drinking?: 1 or 2 3. How often do you have six or more drinks on one occasion?: Never Total Score: 1 MAXIME-7 AMB Questionnaire MAXIME-7 Date MAXIME - 7 assessed: 12/30/24 Feeling nervous, anxious, or on edge: 0 = Not at all Not being able to stop or control worryin = Not at all Worrying too much about different things: 0 = Not at all Trouble relaxin = Not at all Being so restless that it is hard to sit still: 0 = Not at all Becoming easily annoyed or irritable: 0 = Not at all Feeling afraid as if something awful might happen: 0 = Not at all Total MAXIME-7 score (0-4 normal; 5-9 mild; 10-14 moderate; 15-21 severe): 0 Source: Developed by Drs. Hugo Church, Nannette Olea, Nando Gutierres and colleagues, with an educational ny from [employer]. MAXIME-7 Assessment Billing MAXIME-7 Assessment Tool: MAXIME-7 Assessment 30290 Review of Systems Const All systems reviewed & are unremarkable except as noted in HPI and below Reports no additional complaints Eyes Reports no additional complaints ENT Reports no additional complaints Card Reports no additional complaints Resp Reports no additional complaints GI Reports no additional complaints Reports no additional complaints Physical exam (Primary Care) Vital Signs: Last Vital Signs Temp 98.4 F 12/30/24 14:08 Pulse 80 12/30/24 14:08 Resp 18 12/30/24 14:08 BP 122/74 12/30/24 14:08 Pulse Ox 97 12/30/24 14:08 Oxygen Delivery Method Room Air 12/30/24 14:08 BMI result Body Mass Index 27.1 Tobacco/Smoking Status: Tobacco use Status Tobacco use date assessed 12/30/24 12/30/24 14:22 Patient Tobacco Use Status Former Tobacco user 12/30/24 13:58 Tobacco use type Cigarette 12/30/24 13:58 e-Cigarette/Vaping Use Never Used 12/30/24 13:58 PHQ-9: PHQ-9 Score PHQ-9: Total score 0 12/30/24 14:22 Depression Screening Interpretation: Negative Thrive Assessment: Date of Thrive Assessment Date Thrive assessed 12/30/24 12/30/24 14:22 Const General: no acute distress HENMT Head: Yes normal to inspection Mouth: Normal oral and palatal mucosa present Eyes General: appearance normal, both eyes and all related structures Neck Neck: Yes no lymphadenopathy and Yes supple Resp Effort & Inspection: normal respiratory effort Auscultation: clear to auscultation bilaterally Cardio Rhythm: regular rhythm Heart sounds: S1 normal heart sound present and S2 normal heart sound present GI Inspection: Yes normal to inspection Palpation (GI): Soft to palpation Percussion: Yes normal to percussion Auscultation: normal bowel sounds Coding Level of Care Code Est Pt Prev Care >65y(48204) Diagnoses Annual physical exam Z00.00 Hyperlipidemia E78.5 Weight loss R63.4 Additional Codes MAXIME-7 Assessment Billing - MAXIME-7 Assessment Tool: MAXIME-7 Assessment 59856 ([id number]) PHQ-9 - 65614 - PHQ-9 Billing: Yes ([id number]) Assessment & Plan Assessment & Plan (1) Annual physical exam: Code(s): Z00.00 - Encounter for general adult medical examination without abnormal findings Category: Medical Plan: Well-balanced diet regular physical activity discussed with the patient. he declined colonoscopy Cologuard will be sent (2) Hyperlipidemia: Code(s): E78.5 - Hyperlipidemia, unspecified Category: Medical Plan: Patient will restart Crestor and check lipid profile in 3 months (3) Weight loss: Code(s): R63.4 - Abnormal weight loss Category: Medical Plan: Increasing caloric intake adding protein nutritional supplement daily discussed. Follow-up in 3 months to monitor weight Orders: Orders Comprehensive Met. Panel 3 Months E78.5 - Hyperlipidemia, unspecified Complete Blood Count Auto Diff Today Z00.00 - Encounter for general adult medical examination without abnormal findings TSH reflex Free T4 Today Z00.00 - Encounter for general adult medical examination without abnormal findings C Reactive Protein Today Z00.00 - Encounter for general adult medical examination without abnormal findings Comprehensive Met. Panel Today Z00.00 - Encounter for general adult medical examination without abnormal findings IRON PROFILE Today Z00.00 - Encounter for general adult medical examination without abnormal findings Lipid Panel 3 Months E78.5 - Hyperlipidemia, unspecified Referrals Cologuard Test Z12.11 - Encounter for screening for malignant neoplasm of colon, Z12.12 - Encounter for screening for malignant neoplasm of rectum Medications: Discontinued prednisone Discontinued Reason: Doctor's Order Four tablets p.o. q.d. for 3 days then 3 tablets p.o. q.d. for 3 days then 2 tablets p.o. q.d. for 3 days then 1 tablet p.o. q.d. for 3 days 30 tabs 0RF montelukast Discontinued Reason: Doctor's Order 10 mg PO BEDTIME 30 tabs 0RF
[2024-12-30 14:08] VITALS: BP 122/74; PULSE 80; RESP 18; TEMP 36.9; O2SAT 97; BMI 27.1
== END 2024-12-30 14:55 | disposition home or self-care (01) ==
LOC: HO.HMCC 13:48
PROVIDERS: PCP Internal Medicine; Visit Provider Internal Medicine
DX: Z00.00 Encounter for general adult medical examination without abnormal findings (principal); E78.5 Hyperlipidemia, unspecified; R63.4 Abnormal weight loss

== ENCOUNTER 2024-12-30 13:47 | Outpatient (REF) | payer OTHER, SELFPAY ==
[2024-12-30 16:10] LABS: MANUAL DIFF FLAG NO
[2024-12-30 16:16] LABS: Basophils Percent Auto 0.4 % (0-2); Eosinophils Absolute Auto 0.1 X10*3/uL (0.0-0.4); Eosinophils Percent Auto 0.6 % (0-4); Hematocrit 43.6 % (42.0-52.0); Hemoglobin 14.9 g/dl (14.0-18.0); Imm Gran Abs Auto 0.03 X10*3/uL (0.00-0.03); Imm Gran Pct Auto 0.4 % (0.0-0.4); Lymphocytes Absolute Auto 1.9 X10*3/uL (1.2-4.9); Lymphocytes Percent Auto 24.3 % (20-40); Mean Corpuscular HGB Conc 34.2 g/dl (31.0-36.0); Mean Corpuscular Hemoglobin 28.7 pg (27.0-33.0); Mean Corpuscular Volume 83.8 fL (80.0-98.0); Mean Platelet Volume 9.5 fL (9.4-12.4); Monocytes Absolute Auto 0.6 X10*3/uL (0.1-1.2); Neutrophils Absolute Auto 5.2 x10*3/uL (2.0-8.3); Neutrophils Percent Auto 66.3 % (45-73); Platelet Count 255 X10*3/uL (160-400); Red Cell Distribution Width 12.2 % (11.0-16.0); White Blood Count 7.8 X10*3/uL (4.8-10.8)
[2024-12-30 16:44] LABS: Alanine Aminotransferase 20 U/L (0-40); Albumin Level 4.5 g/dL (3.5-5.0); Alkaline Phosphatase 99 U/L (39-117); Anion Gap 14 (12-20); Aspartate Amino Transferase 23 U/L (5-37); Blood Urea Nitrogen 18 mg/dL (9-16); C Reactive Protein 0.22 mg/dL (< or = 0.50); Calcium 9.3 mg/dL (8.4-10.2); Carbon Dioxide 24 mmol/L (22-29); Chloride 107 mmol/L (96-108); Estimated Glomerular Filt Rate 57; Glucose Random 109 mg/dL (60-115); Iron 109 mcg/dL (45-160); Percent Iron Saturation 39 % (15-50); Potassium 3.9 mmol/L (3.3-5.1); Sodium 141 mmol/L (135-145); Total Iron Binding Capacity 279 mcg/dL (228-428); Total Protein 7.3 g/dL (6.5-8.0); Unsaturated Iron Binding 170 ug/dL
[2024-12-30 16:49] LABS: TSH reflex Free T4 1.14 uIU/mL (0.32-4.0)
== END 2024-12-30 13:48 | disposition home or self-care (01) ==
LOC: HO.HMGCLDS 13:47
PROVIDERS: PCP Internal Medicine; Visit Provider Internal Medicine
DX: Z00.00 Encounter for general adult medical examination without abnormal findings (principal); E78.5 Hyperlipidemia, unspecified; R63.4 Abnormal weight loss
CPT/HCPCS: 36415; 80053; 83540; 84443; 85025; 86140; 96127

== ENCOUNTER 2025-03-21 06:43 | Outpatient (REF) | payer OTHER, SELFPAY ==
[2025-03-21 11:36] LABS: Alanine Aminotransferase 22 U/L (0-40); Albumin Level 4.5 g/dL (3.5-5.0); Alkaline Phosphatase 84 U/L (39-117); Anion Gap 13 (12-20); Aspartate Amino Transferase 30 U/L (5-37); Blood Urea Nitrogen 14 mg/dL (9-16); Calcium 9.0 mg/dL (8.4-10.2); Carbon Dioxide 27 mmol/L (22-29); Chloride 105 mmol/L (96-108); Cholesterol 254 mg/dL (<200); Estimated Glomerular Filt Rate > 60; HDL Cholesterol 49 mg/dL (>40); Potassium 4.0 mmol/L (3.3-5.1); Sodium 141 mmol/L (135-145); Total Protein 7.1 g/dL (6.5-8.0); Triglycerides 89 mg/dL (<150)
== END 2025-03-21 06:44 | disposition home or self-care (01) ==
LOC: HO.HMGCLDS 06:43
PROVIDERS: PCP Internal Medicine; Visit Provider Internal Medicine
DX: E78.5 Hyperlipidemia, unspecified (principal)
CPT/HCPCS: 36415; 80053; 80061

== ENCOUNTER 2025-03-24 14:05 | Outpatient (AMB) | payer OTHER, SELFPAY ==
[2025-03-24 14:34] VITALS: BP 124/78; PULSE 76; RESP 18; TEMP 36.8; O2SAT 98; BMI 27.9
--- NOTE | 2025-03-24 14:34 | A.OFFPC_ITS ---
Vital Signs 03/24/25 14:34 Height 6 ft Weight 206 lb BMI 27.9 BP 124/78 Blood Pressure Location Lt brachial Position Sitting Respiration 18 Pulse 76 Pulse Source Pulse Oximeter Temp 98.3 F Temp Source Oral Pulse Oximetry (%) 98 Oxygen Delivery Method Room Air Intake Visit Reasons: Follow up Intake Note: Pt is here today for a follow up visit on labs. Allergies No Known Allergies (No Known Allergies*) Allergy (Verified 03/24/25 14:35) Medication List - Last Reconciled 03/24/25 by Nicol Garcia MD omega-3 fatty acids (Fish Oil Concentrate) 1,000 mg PO DAILY rosuvastatin 10 mg PO DAILY Tobacco use date assessed: 03/24/25 Dental Screening Dental Screen Date: 03/24/25 Did you have a dental visit in the last 12 months?: Yes Did you have a dental problem in the last 6 months where you did not have access to dental care?: No Was dental information given to patient?: Patient has dentist HPI Follow up HPI Details Pt presents for f/u hyperlipid. PFSH Medical History Colonoscopy refused Hyperglycemia Hyperlipidemia History of kidney stones History of jaundice as a child Annual physical exam Surgical History History of cardiac cath History of surgery Family History Father CAD (coronary artery disease), Onset Age: 50 Hx of CABG Heart attack Mother Heart attack Social History Household Members Other:: , 3 sons 21, 17, 7, works at [employer], Housing: House Patient Tobacco Use Status: Former Tobacco user Tobacco use type: Cigarette e-Cigarette/Vaping Use: Never Used service: No Current occupational status: employed Cognitive needs: No Hearing needs: No Vision needs: No Questionnaire PHQ-9 Over the last 2 weeks, how often have you been bothered by any of the following problems? 1. Little interest or pleasure in doing things: not at all 2. Feeling down, depressed, or hopeless: not at all 3. Trouble falling or staying asleep, or sleeping too much: not at all 4. Feeling tired or having little energy: not at all 5. Poor appetite or overeating: not at all 6. Feeling bad about yourself - or that you are a failure or have let yourself or your family down: not at all 7. Trouble concentrating on things, such as reading the newspaper or watching television: not at all 8. Moving or speaking so slowly that other people could have noticed. Or the opposite - being so fidgety or restless that you have been moving around a lot more than usual: not at all 9. Thoughts that you would be better off or of hurting yourself in some way: not at all Total score: 0 Depression Screening Interpretation: Negative Depression Screening Done: Yes Source: Developed by Drs. Hugo Church, Nannette Olea, Nando Gutierres and colleagues, with an educational ny from [employer]. Thrive Questionnaire Date Thrive assessed: 12/30/24 MAXIME-7 AMB Questionnaire MAXIME-7 Date MAXIME - 7 assessed: 12/30/24 Feeling nervous, anxious, or on edge: 0 = Not at all Not being able to stop or control worryin = Not at all Worrying too much about different things: 0 = Not at all Trouble relaxin = Not at all Being so restless that it is hard to sit still: 0 = Not at all Becoming easily annoyed or irritable: 0 = Not at all Feeling afraid as if something awful might happen: 0 = Not at all Total MAXIME-7 score (0-4 normal; 5-9 mild; 10-14 moderate; 15-21 severe): 0 Source: Developed by Drs. Hugo Church, Nannette Olea, Nando Gutierres and colleagues, with an educational ny from [employer]. Review of Systems Const All systems reviewed & are unremarkable except as noted in HPI and below Eyes Reports no additional complaints ENT Reports no additional complaints Card Reports no additional complaints Resp Reports no additional complaints GI Reports no additional complaints Reports no additional complaints Physical exam (Primary Care) Vital Signs: Last Vital Signs Temp 98.3 F 03/24/25 14:34 Pulse 76 03/24/25 14:34 Resp 18 03/24/25 14:34 BP 124/78 03/24/25 14:34 Pulse Ox 98 03/24/25 14:34 Oxygen Delivery Method Room Air 03/24/25 14:34 BMI result Body Mass Index 27.9 Tobacco/Smoking Status: Tobacco use Status Tobacco use date assessed 03/24/25 03/24/25 14:36 Patient Tobacco Use Status Former Tobacco user 03/24/25 14:34 Tobacco use type Cigarette 03/24/25 14:34 e-Cigarette/Vaping Use Never Used 03/24/25 14:34 PHQ-9: PHQ-9 Score PHQ-9: Total score 0 03/24/25 14:36 Depression Screening Interpretation: Negative Thrive Assessment: Date of Thrive Assessment Date Thrive assessed 12/30/24 03/24/25 14:34 Const General: no acute distress HENMT Head: Yes normal to inspection Ears: hearing grossly normal bilaterally Face and sinus: Yes normal facial exam Throat: Yes posterior oropharynx normal Neck Neck: Yes no lymphadenopathy and Yes supple Resp Effort & Inspection: normal respiratory effort Auscultation: clear to auscultation bilaterally Cardio Rhythm: regular rhythm Heart sounds: S1 normal heart sound present and S2 normal heart sound present GI Inspection: Yes normal to inspection Palpation (GI): Soft to palpation Percussion: Yes normal to percussion Auscultation: normal bowel sounds Coding Level of Care Code Est Pt Level 3 (26609) Diagnoses Hyperlipidemia E78.5 Assessment & Plan Assessment & Plan (1) Hyperlipidemia: Code(s): E78.5 - Hyperlipidemia, unspecified Category: Medical Plan: cont Crestor, well-balanced low-cholesterol diet regular physical activity discussed with the patient Orders: Orders Complete Blood Count Auto Diff 9 Months E78.5 - Hyperlipidemia, unspecified, Z00.00 - Encounter for general adult medical examination without abnormal findings PSA,Total (Free>4and<10) 9 Months E78.5 - Hyperlipidemia, unspecified, Z00.00 - Encounter for general adult medical examination without abnormal findings Lipid Panel 3 Months E78.5 - Hyperlipidemia, unspecified Lipid Panel 9 Months E78.5 - Hyperlipidemia, unspecified, Z00.00 - Encounter for general adult medical examination without abnormal findings Comprehensive [place]. Panel Fast 9 Months E78.5 - Hyperlipidemia, unspecified, Z00.00 - Encounter for general adult medical examination without abnormal findings UA w Microscopic 9 Months E78.5 - Hyperlipidemia, unspecified, Z00.00 - Encounter for general adult medical examination without abnormal findings Medications: Refilled rosuvastatin 10 mg PO DAILY 90 tabs 3RF
== END 2025-03-24 15:36 | disposition home or self-care (01) ==
LOC: HO.HMCC 14:05
PROVIDERS: PCP Internal Medicine; Visit Provider Internal Medicine
DX: E78.5 Hyperlipidemia, unspecified (principal)